=== PATIENT | female | born 1955 | race Asian ===

== ENCOUNTER → 2020-10-29 | Day surgery (SDC) | payer OTHER ==
[2020-10-27 13:13] LABS: COVID AG,FIA SOURCE NASOPHARYNGEAL
[~2020-10-29] VITALS: Ht 154.9 cm; Wt 55.5 kg
[~2020-10-29] MED LIST: KETOROLAC TROMETHAMINE 0.5% 5 ML OPHTHALMIC SOLUTION OD SCH; KETOROLAC TROMETHAMINE 0.5% 5 ML OPHTHALMIC SOLUTION ONE; MOXIFLOXACIN HCL 0.5% 3 ML OPHTHALMIC SOLUTION OD SCH; MOXIFLOXACIN HCL 0.5% 3 ML OPHTHALMIC SOLUTION ONE; PHENYLEPHRINE HCL 2.5% 2 ML OPHTHALMIC SOLUTION OD SCH; PHENYLEPHRINE HCL 2.5% 2 ML OPHTHALMIC SOLUTION ONE; RINGERS SOLUTION,LACTATED 500 ML IV ONE; TROPICAMIDE 1% 2 ML OPHTHALMIC SOLUTION OD SCH; TROPICAMIDE 1% 2 ML OPHTHALMIC SOLUTION ONE
== END | disposition home or self-care (01) ==
LOC: SURGERY 05:00
PROVIDERS: ATTEND Ophthalmology
DX: H25.12 Age-related nuclear cataract, left eye (principal); Z53.8 Procedure and treatment not carried out for other reasons; Z20.822 Contact with and (suspected) exposure to COVID-19
CPT/HCPCS: 87426; C9803; J7120